=== PATIENT | female | born 1965 | race Caucasian/White ===

== ENCOUNTER 2016-06-25 08:07 | Emergency (ER) | payer SELFPAY ==
--- NOTE | 2016-06-25 08:21 | ED Physician Documentation ---
General Adult - HISTORIAN Historian: patient - HPI Stated Complaint: cough, sinus pain Chief Complaint: General Adult Onset: days ago (14) Timing: still present Severity: moderate Further Comments: yes (Pt is a 50 yo female with 2 week hx congestion, cough. Pt has family members with strep and flu. Pt has elevated BP on presentation and states that she has stopped taking her propranolol.) - ROS CONST: chills, other (malaise) EYES/ENT: sore throat CVS/RESP: cough GI/: none MS/SKIN/LYMPH: none - PAST HX Past History: asthma, hypertension Allergies/Adverse Reactions: Allergies Allergy/AdvReac Type Severity Reaction Status Date / Time codeine Allergy Verified 06/25/16 09:31 meperidine HCl [From Demerol] Allergy Verified 06/25/16 09:31 amoxicillin trihydrate AdvReac Mild yeast inf Verified 06/25/16 09:31 [From Augmentin] potassium clavulanate AdvReac Mild yeast inf Verified 06/25/16 09:31 [From Augmentin] doxycycline AdvReac Nausea/Vomi Verified 06/25/16 09:31 ting Home Medications: Ambulatory Orders Medication Instructions Recorded Albuterol Sulfate [Ventolin HFA 1 puff D 04/05/14 Inhaler] - SOCIAL HX Smoking History: cigarettes - FAMILY HX Family History: No - VITAL SIGNS Vital Signs: Vital Signs Temp Pulse Resp BP Pulse Ox 137/69 04/05/14 10:01 - REVIEWED ASSESSMENTS Nursing Assessment Reviewed: Yes Vitals Reviewed: Yes Progress - Progress Progress: Rapid strep - pos Inf A & B - neg Rx Z-pack as directed Rx Tessalon 200 mg po tid prn. #30 Rx Propranolol 20 mg po bid # 60. RF 5. ED Results Lab/Radiology - Orders Orders: ED Orders Category Date Time Status GRP A STREP SCREEN Stat Lab 06/25/16 Ordered INFLUENZA A&B Stat Lab 06/25/16 Uncollected General Adult Physical Exam - PHYSICAL EXAM GENERAL APPEARANCE: mild distress EENT: eye inspection normal, ENT inspection normal, pharyngeal erythema NECK: normal inspection, supple RESPIRATORY: no resp distress, chest non-tender, breath sounds normal CVS: reg rate & rhythm, heart sounds normal ABDOMEN: soft, no organomegaly, normal bowel sounds BACK: normal inspection, no CVA tenderness SKIN: warm/dry, normal color EXTREMITIES: non-tender, normal range of motion, no evidence of injury NEURO: oriented X3 Discharge Clincal Impression: Strep pharyngitis, Cough HTN (hypertension) Qualifiers: Hypertension type: essential hypertension Qualified Code(s): I10 - Essential ( primary) hypertension Referrals: Ravi Sewell MD [Primary Care Provider] - Home Medications: Ambulatory Orders Albuterol Sulfate [Ventolin HFA Inhaler] 1 puff D 04/05/14 Condition: Good Disposition: 01 HOME, SELF-CARE Decision to Admit: NO Decision Time: 09:08
[2016-06-25 09:36] VITALS: BP 164/87
== END 2016-06-25 09:20 | disposition home or self-care (01) ==
LOC: ED 08:07
DX: J02.0 Streptococcal pharyngitis (principal); R05 Cough; I10 Essential (primary) hypertension
CPT/HCPCS: 87400; 87880; 99282; 99283